=== PATIENT | female | born 1955 | race African-American/Black ===

== ENCOUNTER 2020-12-28 11:52 | Outpatient (CLI) | payer MEDICARE, MEDICAID | END 2020-12-28 11:53 | disposition home or self-care (01) | LOC: CSHCT 11:52 | PROVIDERS: ATTEND Internal Medicine Cardiovascular Disease | DX: R10.32 Left lower quadrant pain (principal); M79.652 Pain in left thigh; I70.0 Atherosclerosis of aorta; I71.02 Dissection of abdominal aorta; R19.09 Other intra-abdominal and pelvic swelling, mass and lump; N85.2 Hypertrophy of uterus; D25.9 Leiomyoma of uterus, unspecified; N20.0 Calculus of kidney | CPT/HCPCS: 75635; 82565 ==

== ENCOUNTER 2021-03-20 08:26 | Outpatient (CLI) | payer MEDICARE, MEDICAID | END 2021-03-20 08:27 | disposition home or self-care (01) | LOC: CSHMRI 08:26 | PROVIDERS: ATTEND Orthopaedic Surgery Hand Surgery | DX: M93.931 Osteochondropathy, unspecified, right forearm (principal); M25.831 Other specified joint disorders, right wrist; M92.211 Osteochondrosis (juvenile) of carpal lunate [Kienbock], right hand; M18.9 Osteoarthritis of first carpometacarpal joint, unspecified ==

== ENCOUNTER 2021-10-31 08:00 | Outpatient (CLI) | payer MEDICARE | END 2021-10-31 08:01 | disposition home or self-care (01) | LOC: CSHMAMMO 08:00 | PROVIDERS: ATTEND Family Medicine | DX: Z12.31 Encounter for screening mammogram for malignant neoplasm of breast (principal); Z80.3 Family history of malignant neoplasm of breast | CPT/HCPCS: 77063; 77067 ==

== ENCOUNTER 2022-12-08 08:34 | Outpatient (CLI) | payer OTHER | END 2022-12-08 08:35 | disposition home or self-care (01) | LOC: CSHMAMMO 08:34 | PROVIDERS: ATTEND Family Medicine | DX: Z12.31 Encounter for screening mammogram for malignant neoplasm of breast (principal); Z80.3 Family history of malignant neoplasm of breast | CPT/HCPCS: 77063; 77067 ==

== ENCOUNTER 2023-03-10 07:55 | Outpatient (CLI) | payer OTHER, MEDICAID | END 2023-03-10 07:56 | disposition home or self-care (01) | LOC: CSHCP 07:55 | PROVIDERS: ATTEND Internal Medicine Critical Care Medicine | DX: J44.9 Chronic obstructive pulmonary disease, unspecified (principal) | CPT/HCPCS: 94060; 94664; 94726; 94729; 94760 ==